=== PATIENT | male | born 1960 ===

== ENCOUNTER 2023-08-15 16:04 | Emergency (ER) | payer OTHER, SELFPAY ==
[2023-08-15 16:05] VITALS: BP 174/98
[2023-08-15 16:12] VITALS: BMI 37.6
--- NOTE | 2023-08-15 16:17 | EDRN ---
right middle finger is partially amputated, Felix MORENO at bedside, multiple RN's at the pts bedside, finger being soaked in hydrogen peroxide and sterile water, the pt is pleasant and cooperative with staff
[2023-08-15] MEDS: ADACEL 0.5 ML IM (16:28)
--- NOTE | 2023-08-15 16:34 | ED.SKININJ ---
HPI-Injury
General
Chief Complaint: Skin Surface Trauma
Source: patient
Exam Limitations: none
Time Seen by Provider: 08/15/23 16:14
Travel History
Have you had any contact with someone who has COVID-19?: No
Do you have any symptoms of coronavirus? Fever > 100 degrees, chills, cough, shortness of breath, sore throat, loss of taste or smell, muscle aches, or headache?: No
History of Present Illness-Injury
Initial Injury comments:
62-year-old male [id number] presents with injury to right long finger he sustained today. Sliding to walk to the back of his truck slid and pinched his finger and nearly amputated the tip of his finger. Last tetanus unknown. He denies
any significant pain. No other complaints at this time
Past History
Past History
ED Past Medical History: Arrthythmia (Atrial fibrillation), GERD, NIDDM and Other (Obstructive sleep apnea, sepsis, kidney cancer)
ED Past Surgical History: Cardiac (Ablation) and Orthopedic
Phy Exam
Physical Exam
Physical Exam:
General: Well-appearing male no acute respiratory distress
Skin: Near amputation right long finger at the level of the DIP joint. Portion is held on by a skin bridge over the ulnar aspect. The bone and the DIP joint is visible through the wound. The base of the distal phalanx is fractured.
Vascular: Patient has similar capillary refill in the pad of his long finger as he does in the other fingers.
Neuro. Decreased if any sensation to the pad of his volar aspect of the long finger.
Musculoskeletal exam: Patient seems to have intact flexion to the DIP joint of the long finger however no ability to extend
Course
Orders/Labs/Results
Orders:
Orders
08/15/23 16:18
Tetanus/Diphth/Acelpertussis [Adacel] 0.5 ml IM .ONCE ONE
CR Hand - Right Min 3 Views Urgent
Comment:
Reason For Exam: amputation right middle ringer
08/15/23 16:30
CeFAZolin 2 GRAM [Ancef] 2 grams in 10 ml IV NOW
08/15/23 17:03
HYDROmorphone [Dilaudid] 0.5 mg IV NOW STA
08/15/23 17:04
HYDROmorphone [Dilaudid] 0.5 mg .ROUTE .STK-MED ONE
HYDROmorphone [Dilaudid] 0.5 mg IV NOW STA
Vital Signs
Initial and Last Documented VS:
Initial Vital Signs
Temp Pulse Resp BP Pulse Ox
98.0 F 76 18 174/98 94
08/15/23 16:05 08/15/23 16:05 08/15/23 16:05 08/15/23 16:05 08/15/23 16:05
Last Documented Vital Signs
Temp Pulse Resp BP Pulse Ox
98.0 F 76 18 174/98 94
08/15/23 16:05 08/15/23 16:05 08/15/23 16:05 08/15/23 16:05 08/15/23 16:05
Procedures
Laceration Closure
Right Distal Third Finger:
Size of Wound in cm: 3
Description of Wound Edges: ragged and flap-poorly vascularized
Preparation: cleaned with saline
Anesthesia: 1% Lidocaine, Marcaine and Digital-Regional
Revision/Debridement: extensive revision, debrided and irrigate-direct pressure
Wound exploration: explored to base- no FB
Type of Closure: single layer closure
Skin Closure Material: 4-0 prolene
MDM/Problems Addressed
Differential Diagnosis Includes:
Laceration/near amputation right long finger at the DIP joint. Question possible underlying fracture.
Ancef administered for open fracture. Tetanus updated x-ray pending.
*Critical Care Note
Total Time (30-74mins, 75-104mins- exclusive of procedures): Not Applicable
Update Note
Update Note:
Sent pictures of patient's finger and x-rays to orthopedics who recommended closing the wound placing on antibiotics and outpatient follow-up. The finger was given a digital block using 1% lidocaine and 0.5% Marcaine. This provided adequate
anesthesia. The finger was then copiously reirrigated. Anatomic landmarks were realigned. The finger was approximated with 4-0 Prolene sutures in a simple erupted fashion. There were 2 sutures placed to the base of the nail to hold this in place
as well. A splint was applied with a dressing patient started on Keflex and advised close follow-up with hand specialist. Total length of the laceration was about 3 cm
ED Attending Note
-
Portions of this chart may have been created with voice recognition software.� Occasional wrong word or��sound alike� substitutions may have occurred due to the inherent limitations of voice recognition software.
Discharge Plan
Departure
Patient Disposition: Home (Routine Discharge)
Date of Disposition: 08/15/23
Time of Disposition: 17:50
Patient with high blood pressure during this ER visit?: No
Discharge Problem:
Laceration, Open fracture
Instructions: Laceration Repair With Stitches (DC)
Prescriptions:
New
cephalexin 500 mg capsule
500 mg PO Q6H 7 Days Qty: 28 0RF
No Action
multivitamin Tablet
1 tab PO DAILY
losartan 50 mg Tablet
50 mg PO DAILY
sotalol 120 mg Tablet
120 mg PO BID
furosemide 20 mg Tablet
10 mg PO PRN PRN (Reason: CHF HX)
Patient Comments:
PT STATES HE ONLY TAKES 10MG NEEDED
metoprolol succinate 25 mg Tablet Extended Release 24 Hr
25 mg PO QPM
azelastine 137 mcg (0.1 %) Aerosol,[place]
1 spray INTRANASAL PRN PRN (Reason: ALLERGIES)
albuterol sulfate [ProAir HFA] 90 mcg/actuation Hfa Aerosol Inhaler
2 puff INHALATION 6XD PRN (Reason: SOB)
Patient Comments:
only as needed
metformin 500 mg Tablet Extended Release 24hr
500 mg PO BID
cholecalciferol (vitamin D3) [Vitamin D3] 25 mcg (1,000 unit) Tablet
25 mcg PO DAILY
dabigatran etexilate [Pradaxa] 150 mg Capsule
150 mg PO BID
Trulicity 1.5 mg/0.5 mL Pen Injector
1.5 mg SC TU
Patient Comments:
PT TAKES IT ONCE A WEEK FRIDAY OR FRIDAY
oxycodone 5 mg tablet
5 - 10 mg PO Q4HPRN PRN (Reason: moderate to severe pain) Qty: 10 0RF
Patient Comments:
PT STATES 10MG NEEDED
linezolid 600 mg Tablet
600 mg PO BID Qty: 28 0RF
cefdinir 300 mg capsule
300 mg PO BID Qty: 28 0RF
Referrals:
UNKNOWN - PT DOES,NOT KNOW [Unknown Provider] -
Activity Restrictions/Additional Instructions:
Take antibiotics as directed. Keep dressing on. Please follow-up with hand specialist for next available appointment. Return if needed otherwise
Interventions
Interventions:
*Risk Screen - Suicide Last Done: 08/15/23 16:12
*General Assessment Last Done: 08/15/23 16:05
*Neglect/Abuse Screening Last Done: 08/15/23 16:12
ED- Fall Risk Assessment Last Done: 08/15/23 16:12
*ED COVID-19 Vaccine History Last Done: 08/15/23 16:05
ED-Skin Assessment Last Done: 08/15/23 16:12
--- NOTE | 2023-08-15 16:35 | EDRN ---
right middle finger wrapped in gauze and rubina and pt taken to xray
[2023-08-15] MEDS: ANCEF 10 IV (16:45)
[2023-08-15] MEDS: DILAUDID 0.5 MG IV (17:04)
== END 2023-08-15 18:18 | disposition home or self-care (01) ==
LOC: EMR 16:04
PROVIDERS: EMERGENCY PHYSICIAN Emergency Medicine; FAMILY PHYSICIAN Internal Medicine
DX: S62.632B Displaced fracture of distal phalanx of right middle finger, initial encounter for open fracture (principal); S68.122A Partial traumatic metacarpophalangeal amputation of right middle finger, initial encounter; W23.0XXA Caught, crushed, jammed, or pinched between moving objects, initial encounter; I48.91 Unspecified atrial fibrillation; E11.9 Type 2 diabetes mellitus without complications; G47.33 Obstructive sleep apnea (adult) (pediatric); K21.9 Gastro-esophageal reflux disease without esophagitis; Z85.528 Personal history of other malignant neoplasm of kidney
CPT/HCPCS: 64450; 99284; 13132; 96374; 96375; 90471; 73130; 90715

== ENCOUNTER 2024-07-17 14:35 | Inpatient (IN) | payer MEDICARE, SELFPAY ==
[2024-07-16 13:54] VITALS: BP 130/74
[2024-07-16 14:36] LABS: % Basophils 0.4 % (0-2); % Eosinophils 0.1 % (0-6); % Immature Granulocytes 0.4 % (0-0.5); % Lymphocytes 8.8 % (20.5-51.1); % Neutrophils 81.3 % (42.2-75.2); Absolute Neutrophils 8.8 10^3/uL (1.4-6.5); Hematocrit 41.5 % (39.0-52.0); Mean Corp Hgb Conc. 33.7 g/dL (33.0-37.0); Mean Corpuscular Hgb 30.8 pg (27.0-31.0); Mean Corpuscular Volume 91.2 fL (80.0-94.0); Mean Platelet Volume 9.2 fL (7.4-10.4); Nucleated Red Blood Cells % 0 % (-); Platelet Count 234 10^3/uL (130-400); Red Blood Cell Count 4.55 10^6/uL (4.70-6.10); Red Cell Dist. Width 14.3 % (11.5-14.5); White Blood Cell Count 10.8 10^3/uL (4.8-10.8)
[2024-07-16 14:39] LABS: COVID-19 Antigen Negative (Negative)
[2024-07-16 14:40] LABS: ALT (SGPT) 26 U/L (0-50); AST (SGOT) 32 U/L (17-59); Albumin 3.9 g/dl (3.5-5.0); Alkaline Phosphatase 55 U/L (38-126); Blood Urea Nitrogen 14 mg/dl (9-20); Calcium 8.8 mg/dl (8.4-10.2); Carbon Dioxide 24 mmol/L (22-30); Chloride 99 mmol/L (98-107); Glucose 162 mg/dl (70-99); Potassium 4.2 mmol/L (3.5-5.1); Sodium 133 mmol/L (135-145); Total Bilirubin 0.8 mg/dl (0.2-1.3); Total Protein 7.3 g/dl (6.3-8.2); eGFR > 60.00
--- NOTE | 2024-07-16 17:38 | ED.GENMED ---
History of Present Illness
General
Chief Complaint: Extremity Pain (non-traumatic)
Source: patient
Exam Limitations: none
Time Seen by Provider: 07/16/24 17:37
Nursing documentation reviewed up to this point in time: agreed with
History of Present Illness
History of Present Illness:
63-year-old male with history of A-fib on Pradaxa, sleep apnea on CPAP, GERD, NIDDM, partial left nephrectomy 2011 for kidney cancer, cardiac ablation x 3, loop recorder replaced in 2019 presents for pain, NIDDM, redness, swelling right leg, fever,
chills, headache past 4 days, temp max was 104.0 yesterday, last Tylenol 1000 mg 12:30 today. Noted pain inner right thigh 3 days ago and right leg has been getting more red and swollen generally. Denies n/v/d. Appetite has been poor.
Past History
Past History
ED Past Medical History: Arrthythmia (Atrial fibrillation), GERD, NIDDM and Other (Obstructive sleep apnea, sepsis, kidney cancer)
ED Past Surgical History: Cardiac (Ablation) and Orthopedic
Review of Systems
Review of Systems
Allergies reviewed?: Yes
All Other Systems: ROS reviewed and negative except as documented in HPI and ROS
Constitutional: Reports fever and chills
Respiratory: Denies trouble breathing
Cardiac: Denies chest pain
ABD/GI: Reports anorexia; Denies abdominal pain, nausea, vomiting or diarrhea
: Denies dysuria or difficulty voiding
Musculoskeletal: Reports other (pain, swelling, redness right leg)
Skin: Reports other (redness right leg)
Neurological: Reports headache; Denies dizzy, weakness or numbness
Phy Exam
Physical Exam
Physical Exam:
GENERAL: No acute distress. A&Ox3.
CONSTITUTIONAL: Temp 101.8 po for this examiner
EYES: clear, conjunctivae normal
ENMT: moist mucus membranes, Pharynx nl
RESPIRATORY: Regular respirations, nonlabored, lungs clear.
CARDIOVASCULAR: Regular rate and rhythm, no murmurs, no rubs.
GI: Soft, nontender, normal BS
MUSCULOSKELETAL: Moves with ease. Well perfused.
SKIN: Warm, dry, pink. Right leg with red, tender medial aspect thigh, lower leg with blotchy redness, warmth.
PSYCH: Normal mood and affect. Well kept, interactive and appropriate
NEUROLOGIC: Awake, alert and oriented. No focal neurological deficits
Course
Orders/Labs/Results
Orders:
Orders
07/16/24 13:59
US Periph Venous LOWER Ext RT Urgent
Comment:
Reason For Exam: swelling, pain
07/16/24 14:03
COVID-19 Antigen Urgent
Source: Nasal Swab
Complete Blood Count/With Diff Urgent
Comprehensive Metabolic Panel Urgent
Influenza A+B Rapid Molecular Urgent
SHANNAN Source: Nasal Swab
Specimen Description:
07/16/24 Dinner
Regular
At Your Request: Full Participation
07/16/24 18:03
CeFAZolin 2 GRAM [Ancef] 2 grams in 10 ml IV NOW
07/16/24 18:12
Lactic Acid Q4H
Comment: CANCEL 2nd LACTIC ACID IF 1st LACTIC ACID IS LESS THAN 2
Blood Culture Q30M
SHANNAN Source: Blood/Venous
Specimen Description:
Blood Culture Q30M
SHANNAN Source: Blood/Venous
Specimen Description:
07/16/24 18:13
Acetaminophen [Tylenol] 1,000 mg PO NOW STA
07/16/24 18:35
Admit/Transfer Patient As Directed
Co-Sign Provider:
Level of Care: Observation services
Assign to:: Medical/Surgical
Physician / Group: yamile
Diagnosis: cellulitis
Code Status As Directed
Resuscitation Status: Full Code
PRN Pain Medication Management As Directed
May give lesser potent ordered pain med per pt: Yes
preference::
Protocol:: Medication orders for pain may be administered in a
manner that supports deferring to patient preference
when the pt is:
- Requesting an ordered lesser potent pain medication.
Least to most potent pain medications are defined
as: acetaminophen < NSAID < tramadol < opioids
(morphine, oxycodone, hydromorphone).
- Requesting a lesser dose of the same medication IF
ORDERED.
- Requesting a less intrusive route of administration
if both routes are prescribed by the provider (PO <
IV).
07/16/24 18:53
Vancomycin [Vancocin] 2,000 mg 0.9% Sodium Chloride 500 ml [Nss] 500 ml IV NOW
07/16/24 22:37
Acetaminophen [Tylenol] 650 mg PO Q4HPRN PRN
Albuterol [ProAIR HFA INHALER] 2 puff INH R Q6HPRN PRN
Dabigatran Etexilate Mesylate [Pradaxa] 150 mg PO BID
Metformin Extended Release [Glucophage Xr Extended Release] 500 mg PO BID AT 0800,1700
Pantoprazole [Protonix] 40 mg PO DAILYPRN PRN
Sotalol [Betapace] 120 mg PO BID
VANCOMYCIN Pharmacy to Dose [VANCOCIN Pharmacy to Dose] 1 each Pharmacy To Prepare [Call Pharmacy To Prepare] 0 ml IV PER PROTOCOL
07/16/24 22:37
VTE Contraindication Routine
VTE Mechanical Device Contraindication: Medical Contraindication
Pharmocologic Contraindication: Medical Contraindication
Activity As Directed
Activity Level: As Tolerated
Vital Signs As Directed
Frequency: Per unit guidelines
07/17/24 05:38
Complete Blood Count/With Diff IN AM
Comprehensive Metabolic Panel IN AM
07/17/24 08:00
Dapagliflozin [Farxiga] 10 mg PO DAILY
Losartan [Cozaar] 50 mg PO DAILY
Metoprolol Xl [Toprol Xl] 25 mg PO DAILY
Multivitamin [Theragran] 1 tablet PO DAILY
07/17/24 18:00
Cholecalciferol (Vitamin D3) [VITAMIN D3 (cholecalciferol)] 25 mcg PO QPM
Abnormal Lab Results
07/16/24
14:03
RBC 4.55 L 10^6/uL
(4.70-6.10)
Absolute Neuts (auto) 8.8 H 10^3/uL
(1.4-6.5)
Absolute Lymphs (auto) 1.0 L 10^3/uL
(1.2-3.4)
Absolute Monos (auto) 1.0 H 10^3/uL
(0.1-0.6)
Neutrophils % 81.3 H %
(42.2-75.2)
Lymphocytes % 8.8 L %
(20.5-51.1)
Sodium 133 L mmol/L
(135-145)
Glucose 162 H mg/dl
(70-99)
07/16/24 14:03
07/16/24 14:03
Vital Signs
Initial and Last Documented VS:
Initial Vital Signs
Temp Pulse Resp BP Pulse Ox
100.7 F H 88 20 130/74 93
07/16/24 13:54 07/16/24 13:54 07/16/24 13:54 07/16/24 13:54 07/16/24 13:54
Last Documented Vital Signs
Temp Pulse Resp BP Pulse Ox
99.4 F 75 18 128/73 95
07/17/24 07:19 07/17/24 07:19 07/17/24 07:19 07/17/24 07:19 07/17/24 07:19
MDM/Problems Addressed
MDM/Problems Addressed:
63-year-old male with history of A-fib on Pradaxa, sleep apnea on CPAP, GERD, NIDDM, partial left nephrectomy 2011 for kidney cancer, cardiac ablation x 3, loop recorder replaced in 2019 presents for pain, NIDDM, redness, swelling right leg, fever,
chills, headache past 4 days, temp max was 104.0 yesterday, last Tylenol 1000 mg 12:30 today. Noted pain inner right thigh 3 days ago and right leg has been getting more red and swollen generally. Denies n/v/d. Appetite has been poor.
Temp now 101.8 by this examiner
CBC with no clinically significant abnormality
CMP with no clinically significant abnormality
COVID-negative
Flu negative
63 yo NIDDM, fever/chills past 4 days with headache, poor appetite, worsening redness, swelling, pain right leg
US neg for DVT
6:15 p.m.
Plan: Admit, cellulitis right lower extremity, IV antibiotics, blood cultures pending
Not clinically septic
Using Vancomycin and Cefazolin (due to documented PCN allergy of throat swelling, pt denies anaphylaxis).
Hospitalist notified of admission.
Chronic conditions affecting care: DM, HTN and Arrhythmia (afib on Pradaxa)
*Critical Care Note
Total Time (30-74mins, 75-104mins- exclusive of procedures): Not Applicable
ED Attending Note
-
Portions of this chart may have been created with voice recognition software.� Occasional wrong word or��sound alike� substitutions may have occurred due to the inherent limitations of voice recognition software.
Discharge Plan
Departure
Patient Disposition: Admit
Date of Disposition: 07/16/24
Time of Disposition: 18:13
Admit to: Med/Surg
Presentation/result/management discussed w/ accepting MD/DO: Hospitalist
Condition: Fair
Discharge Problem:
Cellulitis of right leg
Interventions
Interventions:
*Risk Screen - Suicide Last Done: 07/16/24 13:54
*General Assessment Last Done: 07/16/24 16:35
*Neglect/Abuse Screening Last Done: 07/16/24 16:35
*ED COVID-19 Vaccine History Last Done: 07/16/24 16:35
*Nursing Disposition Last Done: 07/16/24 22:38
ED-Musculoskeletal Assessment Last Done: 07/16/24 16:35
ED-Peripheral Vascular Assessment Last Done: 07/16/24 16:35
ED-Skin Assessment Last Done: 07/16/24 16:35
Discharge Date and Time
Discharge Date/Time: 07/16/24 22:38
[2024-07-16 18:34] LABS: Lactic Acid 1.5 mmol/L (0.7-2.0)
[2024-07-16 18:47] VITALS: BMI 39.9
--- NOTE | 2024-07-16 18:47 | HPS.HSE ---
Family Physician
-
Family Physician: NOT KNOW UNKNOWN - PT DOES
Chief Complaint
-
right leg swelling
History of Present Illness
63-year-old male past medical history of atrial fibrillation on Pradaxa status post cardiac ablation x 3, obstructive sleep apnea on CPAP, diabetes, GERD, kidney cancer status post left partial nephrectomy, presenting for pain, redness and swelling
of the right upper leg with fevers and chills and headache for the past 4 days. He had temperature of 104 yesterday. Over the past day the swelling and redness and pain is also starting the lower part of the right leg. Denies nausea vomiting or
diarrhea.
He is also been having headache, body aches and some cough over the past few days so initially thought that he had flu.
Denies smoking or alcohol use.
Medical History
Past Medical History
Past Medical History: Reports Other (atrial fibrillation on Pradaxa status post cardiac ablation x 3, obstructive sleep apnea on CPAP, diabetes, GERD, kidney cancer status post left partial nephrectomy)
Past Surgical History: Reports None
Social History
Tobacco: Non-smoker
Alcohol: None
Drug: None
Family History
Family History: Not pertinent
Allergies / Home Medications
Allergies reflects when Allergies were last updated in [facility].
Home Medications with original date entered in [facility]
Allergy/Medication List:
Allergies
Allergy/AdvReac Type Severity Reaction Status Date / Time
Penicillins Allergy THROAT Verified 07/16/24 13:55
SWELLING,
HIVES
sulfamethoxazole Allergy THROAT Verified 07/16/24 13:55
[From Bactrim] SWELLING,
HIVES
trimethoprim [From Bactrim] Allergy THROAT Verified 07/16/24 13:55
SWELLING,
HIVES
Home Medications
cholecalciferol (vitamin D3) 25 mcg (1,000 unit) tablet (Vitamin D3) 25 mcg PO QPM Supplement 11/27/22
dabigatran etexilate 150 mg capsule (Pradaxa) 150 mg PO BID Blood Clot Prevention/Tx 11/27/22
losartan 50 mg tablet 50 mg PO DAILY Blood Pressure 11/27/22
metformin 500 mg tablet,extended release 24hr (osmotic) 500 mg PO BID Diabetes 11/27/22
metoprolol succinate 25 mg tablet,extended release 24 hr 25 mg PO DAILY Arrhythmia 11/27/22
sotalol 120 mg tablet 120 mg PO BID Arrhythmia 11/27/22
albuterol sulfate 90 mcg/actuation aerosol inhaler 2 puff inhalation R Q6HPRN PRN sob 07/16/24
empagliflozin 10 mg tablet (Jardiance) 10 mg PO DAILY 07/16/24
pantoprazole 40 mg tablet,delayed release 40 mg PO DAILYPRN PRN heartburn 07/16/24
potassium chloride 10 mEq tablet,extended release 10 meq PO DAILY 07/16/24
semaglutide 1 mg/dose (4 mg/3 mL) subcutaneous pen injector (Ozempic) 1 mg SC MO 07/16/24
therapeutic multivitamin 1 tab PO DAILY 07/16/24
torsemide 10 mg tablet 10 mg PO DAILY 07/16/24
Review of Systems
-
History Source: Patient
A 12 point ROS was completed and negative except as noted: Yes
Constitutional: Reports No Symptoms
EENT: Reports No Symptoms
Respiratory: Reports No Symptoms
Cardiac: Reports No Symptoms
Abdomen/GI: Reports No Symptoms
: Reports No Symptoms
Musculoskeletal: Reports No Symptoms
Skin: Reports See HPI
Neurological: Reports No Symptoms
Endocrine: Reports No Symptoms
Hematologic/Lymphatic: Reports No Symptoms
Psych: Reports No Symptoms
Physical Exam
Vital Signs
Vital Signs
Temp Pulse Resp BP Pulse Ox
101.8 F H 88 20 130/74 93
07/16/24 18:24 07/16/24 13:54 07/16/24 13:54 07/16/24 13:54 07/16/24 13:54
Physical Exam
General: Well Developed, Well Nourished and No Apparent Distress
HEENT: NormoCephalic, Moist mucous membranes and Atraumatic
Respiratory: Clear
Cardiac: S1/S2 and Regular Rhythm; No Murmur or Rub
GI: Soft, Non Tender, Non Distended and Normal Bowel Sounds; No Organomegaly
Rectal: Deferred by Provider
Musculoskeletal: No Clubbing, No Cyanosis and No Edema
Skin: Other (erythema of right leg ); No Rash
Neuro: Nonfocal/grossly intact
Laboratory Results
-
07/16/24 14:03
07/16/24 14:03
Laboratory Results
Lactic Acid 1.5 mmol/L (0.7-2.0) 07/16/24 18:12
Lactic Acid Cancelled 07/16/24 18:12
Total Bilirubin 0.8 mg/dl (0.2-1.3) 07/16/24 14:03
AST 32 U/L (17-59) 07/16/24 14:03
ALT 26 U/L (0-50) 07/16/24 14:03
Alkaline Phosphatase 55 U/L (38-126) 07/16/24 14:03
Data Reviewed
-
Lab Data: Labs Reviewed by me
Old Records: Reviewed
Impression/Plan
-
IMPRESSION:
PLAN:
# Fever secondary to right lower extremity cellulitis
-Not clinically septic
-Venous ultrasound negative for DVT
-Cefazolin and vancomycin given
-Blood cultures pending
-Vancomycin
-Influenza and COVID negative
-Hold torsemide
Paroxysmal atrial fibrillation s/p cardiac ablation x 3
-Continue sotalol
-Continue metoprolol
-Continue Pradaxa
Essential hypertension
-Continue losartan
Obstructive sleep apnea
Type 2 diabetes
-Continue metformin
-Continue Jardiance
-Insulin sliding scale
GERD
Kidney cancer status post left partial nephrectomy
Full code
DVT prophylaxis�Pradaxa
Regular diet
[2024-07-16] MEDS: TYLENOL 1000 MG PO (19:27)
[2024-07-16] MEDS: ANCEF 10 IV (19:27)
[2024-07-16] MEDS: VANCOCIN 540 MG IV (19:30)
[2024-07-16 19:35] VITALS: BP 154/67
[2024-07-16 22:52] VITALS: BP 134/73
[2024-07-16 22:54] VITALS: BMI 40.0
[2024-07-16 22:56] VITALS: BMI 40.0
[2024-07-16] MEDS: GLUCOPHAGE XR EXTENDED RELEASE 500 MG PO (23:14)
[2024-07-16] MEDS: PRADAXA 150 MG PO (23:15)
[2024-07-16] MEDS: BETAPACE 120 MG PO (23:17)
[2024-07-16] MEDS: TYLENOL 650 MG PO (23:22)
[2024-07-17] VITALS (7 sets, daily range): BP systolic 128–166; BP diastolic 73–87
--- NOTE | 2024-07-17 01:04 | PTCARENOTE ---
Pt arrived from ED via stretcher and safely ambulated into room 336-2. Pt AAOx3, oriented to room, call johnson within reach, able to make needs known.
[2024-07-17] MEDS: VANCOCIN 530 MG IV (05:06)
[2024-07-17] MEDS: TYLENOL 650 MG PO ×4 (05:07→22:02)
[2024-07-17 06:15] LABS: % Basophils 0.6 % (0-2); % Eosinophils 0.6 % (0-6); % Immature Granulocytes 0.6 % (0-0.5); % Lymphocytes 12.6 % (20.5-51.1); % Monocytes 14.1 % (1.7-9.3); % Neutrophils 71.5 % (42.2-75.2); Absolute Basophils 0.1 10^3/uL (0-0.2); Absolute Eosinophils 0.1 10^3/uL (0-0.7); Absolute Immature Granulocytes 0.1 10^3/uL (0-0.05); Absolute Lymphocytes 1.4 10^3/uL (1.2-3.4); Absolute Monocytes 1.6 10^3/uL (0.1-0.6); Absolute Neutrophils 7.9 10^3/uL (1.4-6.5); Hematocrit 41.5 % (39.0-52.0); Hemoglobin 13.7 g/dL (13.0-18.0); Mean Corpuscular Hgb 30.7 pg (27.0-31.0); Mean Platelet Volume 9.3 fL (7.4-10.4); Nucleated Red Blood Cells % 0 % (-); Platelet Count 247 10^3/uL (130-400); Red Blood Cell Count 4.46 10^6/uL (4.70-6.10); Red Cell Dist. Width 14.4 % (11.5-14.5)
[2024-07-17 06:59] LABS: ALT (SGPT) 23 U/L (0-50); AST (SGOT) 32 U/L (17-59); Albumin 3.7 g/dl (3.5-5.0); Alkaline Phosphatase 66 U/L (38-126); Blood Urea Nitrogen 18 mg/dl (9-20); Calcium 8.8 mg/dl (8.4-10.2); Carbon Dioxide 26 mmol/L (22-30); Chloride 97 mmol/L (98-107); Estimated Creatinine Clearance 119 ml/min; Glucose 107 mg/dl (70-99); Potassium 3.9 mmol/L (3.5-5.1); Sodium 135 mmol/L (135-145); Total Bilirubin 0.7 mg/dl (0.2-1.3); Total Protein 7.1 g/dl (6.3-8.2); eGFR > 60.00
[2024-07-17] MEDS: THERAGRAN 1 TABLET PO (08:42)
[2024-07-17] MEDS: PRADAXA 150 MG PO ×2 (08:42→20:22)
[2024-07-17] MEDS: BETAPACE 120 MG PO ×2 (08:43→20:22)
[2024-07-17] MEDS: ANCEF 10 IV ×3 (08:52→23:12)
[2024-07-17] MEDS: FARXIGA 10 MG PO (08:52)
[2024-07-17] MEDS: TOPROL XL 25 MG PO (08:53)
[2024-07-17] MEDS: COZAAR 50 MG PO (08:54)
[2024-07-17] MEDS: GLUCOPHAGE XR EXTENDED RELEASE 500 MG PO ×2 (08:54→17:19)
--- NOTE | 2024-07-17 11:28 | W.PN.HOSP.TC ---
Today's Communication/Plan
-
Change to high dose Ancef IV
Add Insulin with Acu- checks
ok to shower
Resume Torsemide
change to inpt
Assessment / Plan
Assessment / Plan
Physical Exam
General: Well Developed, Well Nourished and No Apparent Distress
HEENT: NormoCephalic, Moist mucous membranes and Atraumatic
Respiratory: Clear
Cardiac: S1/S2
GI: Soft, Non Tender, Non Distended and Normal Bowel Sounds; No Organomegaly
Rectal: no bleeding
Musculoskeletal: No Clubbing, No Cyanosis and No Edema
Skin: Other (erythema of right leg seems less in comparison of the pic he had yesterday
Neuro: Nonfocal/grossly intact
# Fever secondary to right lower extremity non-purulent cellulitis
-Not clinically septic
negative lactic acid
Afebrile , temp at 99
-Venous ultrasound negative for DVT
-Cefazolin to 2 gm Q 8 hours
-Blood cultures pending
-Influenza and COVID negative
-Hold torsemide
Paroxysmal atrial fibrillation s/p cardiac ablation x 3
-Continue sotalol
-Continue metoprolol
-Continue Pradaxa
reported PVCs on tele, repeat stat EKG no changes.
Hyponatremia
mild
Essential hypertension
uncontrolled
c/w BB
Add Torsemide , he takes 10 mg
-Continue losartan
Obstructive sleep apnea
Type 2 diabetes
-Continue metformin
-Continue Jardiance
-Insulin sliding scale
- Will add ISS
GERD
# Obesity BMI 39
Recently started on Mounjaro
Kidney cancer status post left partial nephrectomy
Full code
DVT prophylaxis�Pradaxa
Regular diet
Total time spent to see the patient, examine the patient, review data and lab results, discuss the treatment plan with patient, nursing staff around 55 minutes
Anticipated Discharge: 24 - 48 hours
Subjective/Interval History
-
Date of Service: July 17, 2024
he feels better
less redness in left leg, wants to go home
Objective Data
-
Labs:
Laboratory Results
07/17/24
05:38
WBC 11.0 H
Hgb 13.7
Hct 41.5
Plt Count 247
Sodium 135
Potassium 3.9
Chloride 97 L
Carbon Dioxide 26
BUN 18
Creatinine 1.0
Glucose 107 H
Calcium 8.8
Total Bilirubin 0.7
AST 32
ALT 23
Alkaline Phosphatase 66
Vital Signs:
Vital Signs
Temp Pulse Resp BP Pulse Ox
99.0 F 71 17 129/78 96
07/17/24 10:55 07/17/24 10:55 07/17/24 10:55 07/17/24 10:55 07/17/24 10:55
[2024-07-17] MEDS: DEMADEX 10 MG PO (14:15)
--- NOTE | 2024-07-17 16:16 | CM ---
Alert awake oriented patient who lives with his Devi who lives in a 1 story home with 1 step to enter.He is independent in driving and in all activities of daily living.He was offered VN he declined need.PHIPPS given explained signed on chart.
Chirag VN hx / No SNF history
Pharmacy [facility]
PCP DR Raffy Mckeon
PLAN Home Declined VN
[2024-07-17 16:55] LABS: Glucose - Point of Care 114 mg/dl (70-99)
[2024-07-17] MEDS: VITAMIN D3 (cholecalciferol) 25 MCG PO (17:18)
[2024-07-17 21:19] LABS: Glucose - Point of Care 117 mg/dl (70-99)
[2024-07-17] MEDS: LOPRESSOR 2.5 MG IV (22:03)
--- NOTE | 2024-07-17 23:45 | PTCARENOTE ---
Pt on monitor showing HR in 130s-150s for a sustained amount of time. Pt assessed, asymptomatic, BP 139/89 and temp 100.5. CHEMO [place] notified of patient status. PRN tylenol and STAT lopressor given. After a couple of hours, pt HR remain
elevated in 140s-150s, BP 147/101 and [employer] [employer] notified of update. No new orders at this time.
[2024-07-18] MEDS: DILAUDID 0.5 MG IV ×4 (00:13→18:03)
[2024-07-18] MEDS: LOPRESSOR 5 MG IV (01:23)
[2024-07-18] MEDS: TYLENOL 650 MG PO ×2 (03:39→10:19)
[2024-07-18 03:40] VITALS: BP 111/76
--- NOTE | 2024-07-18 05:22 | W.PN.UPDATE ---
Update Note
Progress Note Update
HR elevated, 130-150's, EKG shows afib w/RVR, pt w/paroxysmal afib hx. Given Metoprolol 2.5 mg IV x 1 with no change in HR. Second dose Metoprolol 5 mg IV x 1 given with improvement in HR 110-120's. BP stable 130/80's. Follows with Dr. Jason
[facility]. Pt also due for battery change in 3 months for his loop recorder. Cardiology consult ordered with Dr. Yu, appreciate his recommendations.
[2024-07-18 06:00] VITALS: BMI 39.1
[2024-07-18 07:37] VITALS: BP 115/85
[2024-07-18] MEDS: COZAAR 50 MG PO (07:52)
[2024-07-18] MEDS: GLUCOPHAGE XR EXTENDED RELEASE 500 MG PO ×2 (07:52→18:02)
[2024-07-18] MEDS: BETAPACE 120 MG PO ×2 (07:52→19:52)
[2024-07-18] MEDS: PRADAXA 150 MG PO ×2 (07:53→19:52)
[2024-07-18] MEDS: ANCEF 10 IV (07:54)
[2024-07-18] MEDS: THERAGRAN 1 TABLET PO (07:54)
--- NOTE | 2024-07-18 07:56 | PHA.VAN.IN ---
Assessment
- Assessment
Renal Function: Appears similar to baseline
Renal Function may be Overestimated due to: age and bmi
Concomitant Antimicrobials: ancef
- Previous Dosing Experience
Previous Regimen: 1250mg q8h
Date of Regimen: 12/2022
Patient's SCR is: Similar to previous dosing experience
Patient's weight is: Similar to previous dosing experience
due to age will start with q12h dosing
AUC Dosing Plan
- Dosing Variables
Dosing Weight (kg): 145.6
Dosing CrCl (ml/min): 100
Vd coefficient (L/kg): 0.6
- Empiric Dosing
Initial / Loading Dose: 2gm 07/16, 1.5gm 07/17
Maintenance Regimen: 2000mg q12h
Estimated AUC (mcg*h/mL): 493
Estimated Peak (mcg*h/mL): 32.4
Estimated Trough (mcg/ml): 11.6
Estimated Half Life (H): 6.8
- Monitoring
No levels ordered at this time: consider at steady state
Pharmacokinetics Vancomycin I
- -
Patient Age: 63
Patient Sex: Male
Vancomycin Day #: 1
Indication: Bacteremia
Requesting Provider: Dr. Razo
Pertinent Antimicrobial Allergies:
pcns=throat swelling
bactrim=throat swelling
Height / Weight:
Height 6 ft 4 in
Actual Weight 145.603 kg
IBW in k.8
- Vital Signs / Lab Results
Temp Pulse Resp BP Pulse Ox
98.8 F 127 24 115/85 96
07/18/24 07:37 07/18/24 07:37 07/18/24 07:37 07/18/24 07:37 07/18/24 03:40
Lab Results - Hematology
07/16/24 07/17/24
14:03 05:38
WBC 10.8 11.0 H
Lab Results - Chemistry
07/16/24 07/17/24
14:03 05:38
BUN 14 18
Creatinine 0.9 1.0
Estimated Creat Clear 119
Albumin 3.9 3.7
07/16/24 07/16/24
18:12 18:12
Lactic Acid 1.5 Cancelled
Microbiology Results
07/16/24 18:12 Blood Culture - Preliminary
Blood/Venous No Growth in 24 hours- Final report to follow
07/16/24 18:12 Blood Culture - Preliminary
Blood/Venous No Growth in 24 hours- Final report to follow
07/16/24 14:03 Influenza Types A & B (GERMAINE) - Final
Nasal Swab Negative for Influenza A & B, NAAT
Negative results must be combined with clinical observations
and patient history.
Nucleic Acid Amplification test (NAAT)performed on the
[employer] NOW platform.
[2024-07-18] MEDS: TOPROL XL 50 MG PO (07:59)
[2024-07-18] MEDS: VANCOCIN 540 MG IV ×2 (08:18→18:02)
[2024-07-18 08:25] LABS: Hematocrit 43.7 % (39.0-52.0); Hemoglobin 14.7 g/dL (13.0-18.0); Mean Corp Hgb Conc. 33.6 g/dL (33.0-37.0); Mean Corpuscular Hgb 31.1 pg (27.0-31.0); Mean Corpuscular Volume 92.6 fL (80.0-94.0); Mean Platelet Volume 9.2 fL (7.4-10.4); Platelet Count 260 10^3/uL (130-400); Red Blood Cell Count 4.72 10^6/uL (4.70-6.10); Red Cell Dist. Width 14.4 % (11.5-14.5); White Blood Cell Count 11.1 10^3/uL (4.8-10.8)
[2024-07-18 08:31] LABS: Glucose - Point of Care 107 mg/dl (70-99)
[2024-07-18 08:44] LABS: Blood Urea Nitrogen 19 mg/dl (9-20); Calcium 8.8 mg/dl (8.4-10.2); Carbon Dioxide 26 mmol/L (22-30); Chloride 99 mmol/L (98-107); Estimated Creatinine Clearance > 125 ml/min; Glucose 107 mg/dl (70-99); Potassium 4.1 mmol/L (3.5-5.1); Sodium 136 mmol/L (135-145); eGFR > 60.00
--- NOTE | 2024-07-18 09:08 | W.PN.HOSP.TC ---
Today's Communication/Plan
-
No clinical improvement
Requesting ID evaluation
Add Vancomycin for possible resistant bacteria
Add IV PRN Dilaudid
Assessment / Plan
Assessment / Plan
Physical Exam
General: Well Developed, Well Nourished and No Apparent Distress
HEENT: NormoCephalic, Moist mucous membranes and Atraumatic
Respiratory: Clear
Cardiac: S1/S2
GI: Soft, Non Tender, Non Distended and Normal Bowel Sounds; No Organomegaly
Rectal: no bleeding
Musculoskeletal: No Clubbing, No Cyanosis and No Edema
Skin: Other (erythema of right leg seems less in comparison of the pic he had yesterday
Neuro: Nonfocal/grossly intact
# Fever secondary to right lower extremity non-purulent cellulitis
seems to be worse with erythema
+ fever at 100.4 today
Will Change back to IV vancomycin, possible MRSA, has staph in past but not MRSA?
Will ask ID to evaluate
IV Dilaudid for PRN pain
Re-culture blood
Recently started on Jardiance and increase dose of Ozempic,
negative lactic acid
-Venous ultrasound negative for DVT
- on Cefazolin to 2 gm Q 8 hours, add IV Vancomycin until ID sees the patient.
-Blood cultures no growth
-Influenza and COVID negative
-Hold torsemide
Paroxysmal atrial fibrillation s/p cardiac ablation x 3
-Continue sotalol
-Continue metoprolol
-Continue Pradaxa
reported PVCs on tele, repeat stat EKG no changes.
Hyponatremia
mild
Essential hypertension
uncontrolled
c/w BB
Added Torsemide , he takes 10 mg
-Continue losartan
Obstructive sleep apnea
Type 2 diabetes
-Continue metformin
-On OP regimen includes: Jardiance, started a week ago. Dose of Ozempic was increased also.
-Insulin sliding scale.
GERD
# Obesity BMI 39
Recently started on Mounjaro
Kidney cancer status post left partial nephrectomy
Full code
DVT prophylaxis�Pradaxa
Regular diet
Total time spent to see the patient, examine the patient, review data and lab results, discuss the treatment plan with patient, , nursing staff around 55 minutes
Anticipated Discharge: 24 - 48 hours
Subjective/Interval History
-
Date of Service: July 18, 2024
Pt is having pain in leg, wants pain medicine , Tylenol not enough
He is upset because his cellulitis not better,
Objective Data
-
Labs:
Laboratory Results
07/18/24
07:57
WBC 11.1 H
Hgb 14.7
Hct 43.7
Plt Count 260
Sodium 136
Potassium 4.1
Chloride 99
Carbon Dioxide 26
BUN 19
Creatinine 0.9
Glucose 107 H
Calcium 8.8
Vital Signs:
Vital Signs
Temp Pulse Resp BP Pulse Ox
98.8 F 127 24 115/85 96
07/18/24 07:37 07/18/24 07:52 07/18/24 07:37 07/18/24 07:52 07/18/24 03:40
I&O
07/17/24 07/18/24 07/19/24
06:59 06:59 06:59
Intake Total 1500 / 1500
Balance 1500 / 1500
[2024-07-18] MEDS: BENADRYL 25 MG PO (09:48)
--- NOTE | 2024-07-18 10:05 | PTCARENOTE ---
Pt c/o itching throughout RLE. made aware, new order provided, see MAR.
--- NOTE | 2024-07-18 10:20 | PTCARENOTE ---
HR elevated, 120's-130's. STANLEY. made aware, no new orders provided. instructed this RN to administer tylenol, tylenol administered, see MAR.
[2024-07-18 11:36] LABS: Glycohemoglobin (HgbA1c) 6.7 % (4.0-5.6)
[2024-07-18 11:45] VITALS: BP 133/76
[2024-07-18 11:59] LABS: Glucose - Point of Care 134 mg/dl (70-99)
--- NOTE | 2024-07-18 12:20 | CON.ID ---
Consultation
-
Date/Time Consultation Requested: 07/18/2024 0716
Date/Time Consultation Performed: 07/18/2024 1200
Requesting Provider: Dr. Razo
Performing Provider: Dr. Reyes
Reason for Consultation: Right lower extremity cellulitis
Chief Complaint / Past History
History of Present Illness
Yazan Phan is a 63-year-old man being evaluated the request of Dr. Razo in regards to right lower extremity cellulitis. History is obtained from chart review, along with patient interview.
The patient has a significant past medical history of A-fib (on Pradaxa), along with DM with neuropathy. He reports he was in his usual state of health until approximately 6 days ago when he developed fevers along with a headache. Around that time
he also reports that he noted some right groin discomfort, with a 'swollen area' down his medial thigh. 2 days before admission he noted some increasing redness of the posterior calf area, and increasing discomfort in the in the right leg.
Ultimately he presented to the hospital on 07/16 for further evaluation.
In the ER he was noted to be febrile. White count was not elevated, but he did have a left shift. He was initially placed on vancomycin and cefazolin. Since admission, white count has persisted, as have fevers and Infectious Diseases is asked to
comment upon further antimicrobial therapy.
Past History
Additional Past Medical History:
A-fib (on Pradaxa)
MEHDI
GERD
NIDDM
Hx RCC
Additional Past Surgical History:
Partial left nephrectomy
Cardiac ablation
Allergy History:
Penicillins Allergy (Verified 07/16/24 13:55)
THROAT SWELLING, HIVES
sulfamethoxazole [From Bactrim] Allergy (Verified 07/16/24 13:55)
THROAT SWELLING, HIVES
Medications Reviewed: Yes
Current Antibiotics:
Cefazolin 2 g IV every 8 hours (day #3)
Vancomycin (dosed per pharmacy) (day #3)
Social History
Tobacco: Non-Smoker
Alcohol: None
Drug: None
Personal:
Living: With Family
Employment: Employed
Family History
Family History: Not Pertinent
Review of Systems
Vital Signs
Temp Pulse Resp BP Pulse Ox
98.8 F 127 24 115/85 96
07/18/24 07:37 07/18/24 07:52 07/18/24 07:37 07/18/24 07:52 07/18/24 03:40
Physical Exam
Physical Exam
Constitutional: No Acute Distress, Well Developed, Comfortable, Non-toxic and Obese
Head: Normocephalic
Eyes: Pupils Equal, Pupils Round, No Conjunctival Hemorrhage and Sclera Anicteric
Oral: No Thrush and No Ulcers
Cardiovascular: Regular Rate and S1/S2; Negative S3/S4
Pulmonary: Clear; Negative Wheezes, Rales or Rhonchi
Gastrointestinal: Soft, Non Tender, Non Distended, Normal Bowel Sounds, No Rebound and No Guarding
Genito-Urinary: Negative Cao
Extremities: Edema (RLE), Erythema (RLE; patchy and dark) and Calf Swelling; Negative Cyanosis
Skin: Warm and Dry; Negative Jaundice
Neurological: Awake and Alert
Psychological: Calm
Lab / Diagnostic Study Results
07/18/24 07:57
07/18/24 07:57
Abs Immat Gran (auto) 0.1 10^3/uL (0-0.05) H 07/17/24 05:38
Absolute Neuts (auto) 7.9 10^3/uL (1.4-6.5) H 07/17/24 05:38
Absolute Lymphs (auto) 1.4 10^3/uL (1.2-3.4) 07/17/24 05:38
Absolute Monos (auto) 1.6 10^3/uL (0.1-0.6) H 07/17/24 05:38
Absolute Basos (auto) 0.1 10^3/uL (0-0.2) 07/17/24 05:38
Immature Gran % 0.6 % (0-0.5) H 07/17/24 05:38
Neutrophils % 71.5 % (42.2-75.2) 07/17/24 05:38
Lymphocytes % 12.6 % (20.5-51.1) L 07/17/24 05:38
Monocytes % 14.1 % (1.7-9.3) H 07/17/24 05:38
Eosinophils % 0.6 % (0-6) 07/17/24 05:38
Basophils % 0.6 % (0-2) 07/17/24 05:38
Lactic Acid 1.5 mmol/L (0.7-2.0) 07/16/24 18:12
Lactic Acid Cancelled 07/16/24 18:12
Microbiology Results
Micro:
07/18/24 07:57 Blood Culture - Pending
Blood/Venous
07/16/24 18:12 Blood Culture - Preliminary
Blood/Venous No Growth in 24 hours- Final report to follow
07/16/24 18:12 Blood Culture - Preliminary
Blood/Venous No Growth in 24 hours- Final report to follow
07/16/24 14:03 Influenza Types A & B (GERMAINE) - Final
Nasal Swab Negative for Influenza A & B, NAAT
Negative results must be combined with clinical observations
and patient history.
Nucleic Acid Amplification test (NAAT)performed on the
[employer] NOW platform.
Imaging:
07/16/2024 Duplex ultrasound right lower extremity: Real-time grayscale and duplex ultrasound of the deep venous system of the right lower extremity demonstrates no evidence of deep venous thrombosis. Normal flow is demonstrated in the posterior
tibial, popliteal, superficial femoral and common femoral veins. These vessels are normally compressible and demonstrate normal flow augmentation with compression. Normal blood flow is seen in the left common femoral vein.
Assessment / Plan
Low-grade fevers
Suspected right lower extremity cellulitis
Low-grade white count
A-fib (on Pradaxa)
MEHDI
GERD
NIDDM
Hx RCC
Recommendations:
Continue with vancomycin for the present. Discontinue further cefazolin for now.
Overall appearance of the leg not entirely consistent with cellulitis, although atypical presentation may be caused by combination of tissue damage and Pradaxa
Lower extremity elevation above the level of the heart for 2 hours out of every 6.
Elbert wrap to the right lower extremity.
Follow for clinical improvement.
Care Review
Plan reviewed with: Physician (Hospitalist)
[2024-07-18] MEDS: TOPROL XL 25 MG PO (12:21)
[2024-07-18] MEDS: FLUSH (NSS) 2 FLUSH IV (12:30)
--- NOTE | 2024-07-18 12:35 | PTCARENOTE ---
Pt c/o of itching throughout RLE, leg appears dry. made aware, new order provided, see MAR.
--- NOTE | 2024-07-18 13:31 | CON.CAR ---
Consultation
Consultation Request
Date/Time Consultation Requested: July 18, 2024
Date/Time Consultation Performed: July 18, 2024
Requesting Provider: Hospitalist
Performing Provider: Aimee
Reason for Consultation: A-fib
Medical History
-
Chief Complaint: A-fib
History of Present Illness:
63-year-old male with history of prior multiple cardiac ablations maintained on sotalol and metoprolol by Dr. Tyrone Zarate at [facility]. He is in with fever, cellulitis, requiring IV antibiotics and rates are modestly elevated in
the 110 to 120 bpm range and he is interestingly asymptomatic. He is due for a cardiac ultrasound as an outpatient. He has not missed any doses of oral anticoagulation per patient.
Past Medical History
Past Medical History: Arrhythmias
Past Surgical History: Urological
Social History
Tobacco: Former Smoker
Alcohol: None
Drug: None
Personal:
Living: With Family
Employment: Employed
Family History
Family History: Reviewed & Not Pertinent
Allergies / Home Medications
Allergy/AdvReac Type Severity Reaction Status Date / Time
Penicillins Allergy THROAT Verified 07/16/24 13:55
SWELLING,
HIVES
sulfamethoxazole Allergy THROAT Verified 07/16/24 13:55
[From Bactrim] SWELLING,
HIVES
trimethoprim [From Bactrim] Allergy THROAT Verified 07/16/24 13:55
SWELLING,
HIVES
�Medication �Instructions �Recorded �Confirmed �Type
cholecalciferol (vitamin D3) 25 25 mcg PO QPM Supplement 11/27/22 07/16/24 History
mcg (1,000 unit) tablet (Vitamin
D3)
dabigatran etexilate 150 mg 150 mg PO BID Blood Clot 11/27/22 07/16/24 History
capsule (Pradaxa) Prevention/Tx
losartan 50 mg tablet 50 mg PO DAILY Blood Pressure 11/27/22 07/16/24 History
metformin 500 mg tablet,extended 500 mg PO BID Diabetes 11/27/22 07/16/24 History
release 24hr (osmotic)
metoprolol succinate 25 mg 25 mg PO DAILY Arrhythmia 11/27/22 07/16/24 History
tablet,extended release 24 hr
sotalol 120 mg tablet 120 mg PO BID Arrhythmia 11/27/22 07/16/24 History
albuterol sulfate 90 mcg/actuation 2 puff inhalation R Q6HPRN PRN sob 07/16/24 07/16/24 History
aerosol inhaler
empagliflozin 10 mg tablet 10 mg PO DAILY Diabetes 07/16/24 07/16/24 History
(Jardiance)
pantoprazole 40 mg tablet,delayed 40 mg PO DAILYPRN PRN heartburn 07/16/24 07/16/24 History
release
potassium chloride 10 mEq 10 meq PO DAILY Supplement 07/16/24 07/16/24 History
tablet,extended release
semaglutide 1 mg/dose (4 mg/3 mL) 1 mg SC MO Diabetes 07/16/24 07/16/24 History
subcutaneous pen injector (Ozempic)
therapeutic multivitamin 1 tab PO DAILY Supplement 07/16/24 07/16/24 History
torsemide 10 mg tablet 10 mg PO DAILY Fluid 07/16/24 07/16/24 History
Retention/Swelling
Review of Systems
-
All other systems: Negative unless noted
Cardiac: No Symptoms, Chest Pain and Palpitations
Abdomen/GI: No Symptoms
: No Symptoms
Musculoskeletal: No Symptoms
Skin: No Symptoms
Neurological: No Symptoms
Physical Exam
Vital Signs
Temp Pulse Resp BP Pulse Ox
98.3 F 121 18 133/76 97
07/18/24 11:45 07/18/24 12:21 07/18/24 11:45 07/18/24 12:21 07/18/24 11:45
Lab Results
07/18/24 07:57
07/18/24 07:57
Physical Exam
General: Well Developed and Well Nourished
HEENT: Normocephalic and Anicteric
Respiratory: Clear
Cardiac: S1/S2 and Irregular Rhythm
Breast: Deferred by me
GI: Soft, Non Tender and Non Distended
Rectal: Deferred by Provider
Genito-urinary: Other
Musculoskeletal: No Clubbing and No Cyanosis
Skin: Warm, Dry and Rash
Neuro: Awake, Alert and Oriented
Hematologic/Lymphatic: No Lymphadenopathy
Psych: Calm
Impression / Plan
-
Impression:
Fever
Cellulitis�admission for acute refractory cellulitis
History of prior multiple cardiac ablations for A-fib most recent 3 years ago
Antiarrhythmic drug therapy monitoring
Hypertension
Sleep apnea
BMI 39
Recent introduction of Mounjaro
Hyponatremia
GERD
History of partial nephrectomy
Recommendations:
Check echocardiogram on Friday
With regards to paroxysmal atrial fibrillation s/p cardiac ablation x 3
-Continue sotalol
-Continue metoprolol
-Continue Pradaxa
-Reasonable to follow EKG every 2 to 3 days
-Maintain telemetry
-Please request old records on Friday as he is a complex prior cardiac and A-fib history
-Appears euvolemic
Data Reviewed
-
EKG: Tracing Personally Visualized and interpreted
Radiology: Report Reviewed by me
MRI: Image Personally Visualized and interpreted
Medical Tests (Nuc Med, Echo etc): Image Personally Visualized and interpreted
Labs: Labs Reviewed by me
Old Records: Requested
[2024-07-18] MEDS: HYDROPHOR 1 APPLIC TOPICAL (13:34)
[2024-07-18 15:30] VITALS: BP 118/78
[2024-07-18 17:59] LABS: Glucose - Point of Care 133 mg/dl (70-99)
[2024-07-18] MEDS: VITAMIN D3 (cholecalciferol) 25 MCG PO (18:02)
[2024-07-18 19:30] VITALS: BP 111/62
[2024-07-18 21:29] LABS: Glucose - Point of Care 125 mg/dl (70-99)
[2024-07-18 23:35] VITALS: BP 146/90
[2024-07-19 03:55] VITALS: BP 110/72
[2024-07-19] MEDS: VANCOCIN 540 MG IV (05:59)
[2024-07-19 06:00] VITALS: BMI 39.4
[2024-07-19 07:21] VITALS: BP 142/82
[2024-07-19 08:03] LABS: Glucose - Point of Care 110 mg/dl (70-99)
[2024-07-19] MEDS: GLUCOPHAGE XR EXTENDED RELEASE 500 MG PO ×2 (08:07→16:26)
[2024-07-19] MEDS: BETAPACE 120 MG PO (08:07)
[2024-07-19] MEDS: PRADAXA 150 MG PO (08:08)
[2024-07-19] MEDS: THERAGRAN 1 TABLET PO (08:08)
[2024-07-19] MEDS: COZAAR 50 MG PO (08:08)
[2024-07-19] MEDS: TOPROL XL 50 MG PO ×2 (08:09→14:02)
--- NOTE | 2024-07-19 08:36 | PHA.VAN.FU ---
Vancomycin Assessment / Plan
- Assessment
Renal Function: SCR Decreasing
WBC's are: Stable
In the past 24 hrs, patient has been: Afebrile
- Dosing Plan
Continue: Vanc 2000mg Q12H through levels tonight
Patient may not fully be at steady state given weight > 100kg and likely does not follow population PK
However, will obtain levels now given high dosing
- Monitoring Plan
Peak Level: 07/19 22:00
Trough Level: 07/20 05:30
Monitoring Comments: levels to be drawn after 4th consistent total dose of 2g
- Follow Up
Pharmacy will continue to follow.
Vancomycin Follow UP
- -
Patient Age: 63
Patient Sex: Male
Vancomycin Day #: 2
Indication: Bacteremia
Requesting Provider: Dr. Razo / Eric
Pertinent Antimicrobial Allergies:
penicillins =throat swelling
SMX/TMP = swelling
Height / Weight:
Height 6 ft 4 in
Actual Weight 146.782 kg
IBW in k.8
Pertinent Past Medical History: BMI ~39
- Vital Signs / Lab Results
Temp Pulse Resp BP Pulse Ox
98.1 F 94 17 142/82 97
07/19/24 07:21 07/19/24 08:07 07/19/24 07:21 07/19/24 08:07 07/19/24 07:21
Lab Results - Hematology
07/16/24 07/17/24 07/18/24
14:03 05:38 07:57
WBC 10.8 11.0 H 11.1 H
Lab Results - Chemistry
07/16/24 07/17/24 07/18/24
14:03 05:38 07:57
BUN 14 18 19
Creatinine 0.9 1.0 0.9
Estimated Creat Clear 119 > 125
Albumin 3.9 3.7
07/16/24 07/16/24
18:12 18:12
Lactic Acid 1.5 Cancelled
Microbiology Results
07/18/24 07:57 Blood Culture - Preliminary
Blood/Venous No Growth in 24 hours- Final report to follow
07/16/24 18:12 Blood Culture - Preliminary
Blood/Venous No Growth in 48 hours- Final report to follow
07/16/24 18:12 Blood Culture - Preliminary
Blood/Venous No Growth in 48 hours- Final report to follow
[2024-07-19 09:12] LABS: Hematocrit 40.1 % (39.0-52.0); Hemoglobin 13.2 g/dL (13.0-18.0); Mean Corp Hgb Conc. 32.9 g/dL (33.0-37.0); Mean Corpuscular Hgb 30.7 pg (27.0-31.0); Mean Corpuscular Volume 93.3 fL (80.0-94.0); Mean Platelet Volume 9.7 fL (7.4-10.4); Platelet Count 315 10^3/uL (130-400); Red Cell Dist. Width 14.3 % (11.5-14.5); White Blood Cell Count 11.8 10^3/uL (4.8-10.8)
[2024-07-19 09:15] LABS: Blood Urea Nitrogen 16 mg/dl (9-20); Calcium 8.4 mg/dl (8.4-10.2); Carbon Dioxide 28 mmol/L (22-30); Chloride 99 mmol/L (98-107); Estimated Creatinine Clearance > 125 ml/min; Glucose 115 mg/dl (70-99); Potassium 4.3 mmol/L (3.5-5.1); Sodium 136 mmol/L (135-145); eGFR > 60.00
--- NOTE | 2024-07-19 10:00 | PTCARENOTE ---
Pt tachycardic, HR 100's-120's. Asymptomatic. made aware. No new orders provided.
--- NOTE | 2024-07-19 10:55 | W.PN.CARDCBS ---
Today's Communication / Plan
-
Sign off
Impression / Plan
-
Impression:
Fever
Cellulitis�admission for acute refractory cellulitis
History of prior multiple cardiac ablations for A-fib most recent 3 years ago
Antiarrhythmic drug therapy monitoring
Hypertension
Sleep apnea
BMI 39
Recent introduction of Mounjaro
Hyponatremia
GERD
History of partial nephrectomy
Recommendations:
Remains in rate controlled A-fib
He has had paroxysmal A-fib in the past and is followed closely by EP elsewhere
He remains stable for discharge from a cardiology viewpoint
Will try to obtain records for future admissions here
Will sign off, call with questions
Discussed with patient and in detail
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
Subjective
Date of Service: July 19, 2024
No complaints
Objective
Labs:
07/19/24 07:56
07/19/24 07:56
Labs
Hgb 13.2 g/dL (13.0-18.0) 07/19/24 07:56
Hct 40.1 % (39.0-52.0) 07/19/24 07:56
Plt Count 315 10^3/uL (130-400) D 07/19/24 07:56
Sodium 136 mmol/L (135-145) 07/19/24 07:56
Potassium 4.3 mmol/L (3.5-5.1) 07/19/24 07:56
BUN 16 mg/dl (9-20) 07/19/24 07:56
Creatinine 0.7 mg/dL (0.7-1.3) 07/19/24 07:56
Glucose 115 mg/dl (70-99) H 07/19/24 07:56
Vital Signs and I&O:
Vital Signs
Temp Pulse Resp BP Pulse Ox
98.1 F 94 17 142/82 97
07/19/24 07:21 07/19/24 08:07 07/19/24 07:21 07/19/24 08:07 07/19/24 07:21
Vital Signs
Temp Pulse Resp BP Pulse Ox
98.1 F 94 17 142/82 97
07/19/24 07:21 07/19/24 08:07 07/19/24 07:21 07/19/24 08:07 07/19/24 07:21
Intake & Output
07/17/24 07/18/24 07/19/24 07/20/24
06:59 06:59 06:59 06:59
Intake Total 1500 / 1500 3440 / 3440
Balance 1500 / 1500 3440 / 3440
Physical Exam
Physical Exam
General: Well developed, well nourished in NAD.
Neck: Supple, no JVD, HJR, carotids +2 B/L, no bruits bilaterally.
Heart: Non displaced PMI, irregular, no murmurs, No S3, S4, no rubs.
Lungs: Clear to auscultation bilaterally, no wheeze, rhonchi, rubs bilaterally,
normal expiratory phase.
Extremities: No clubbing, cyanosis or edema bilaterally.
Neuro: Grossly nonfocal, awake, alert and oriented x3.
[2024-07-19 11:10] VITALS: BP 132/85
[2024-07-19 11:50] LABS: Glucose - Point of Care 116 mg/dl (70-99)
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
[2024-07-19] MEDS: DEMADEX 10 MG PO (12:41)
--- NOTE | 2024-07-19 13:03 | W.PN.ID1 ---
Date of Service
Date of Service: July 19, 2024
Today's Communication
Continue antibiotics. See below�
Assessment / Plan
Low-grade fevers
Suspected right lower extremity cellulitis
Low-grade white count
A-fib (on Pradaxa)
MEHDI
GERD
NIDDM
Hx RCC
Recommendations:
Continue with vancomycin for now.
I have reached out to Case Management regarding infusion benefits.
Ideally, would give a dose of daptomycin today to bridge until tomorrow, when he could receive a dose of dalbavancin in the Outpatient Infusion Department.
Will await to hear from CM.
Continue wilfredo wrap to the right lower extremity.
����������������������������������������������������������
Chief Complaint
-: Cellulitis
Subjective / Review of Systems
Patient seen and examined. Reports right leg is feeling improved. Still with same amount of discoloration/erythema, but no worsening, and prior discomfort has improved.
Vital Signs / Physical Exam
Vital Signs
Vital Signs
Temp Pulse Resp BP Pulse Ox
98.8 F 117 18 132/85 98
07/19/24 11:10 07/19/24 12:41 07/19/24 11:10 07/19/24 12:41 07/19/24 11:10
Physical Exam
Constitutional: No Acute Distress, Comfortable and Non-toxic
Eyes: Sclera Anicteric
Pulmonary: Non Labored
Gastrointestinal: Non Distended
Extremities: Other (Right leg with ongoing edema. Discolored areas over the leg appears stable, and have not significantly changed or gotten worse. Prior tenderness is diminished.)
Neurological: Awake and Alert
Psychological: Calm
Objective Data
Lab Data
Lab Results
07/19/24 07:56
07/19/24 07:56
Estimated Creat Clear > 125 ml/min 07/19/24 07:56
Lactic Acid 1.5 mmol/L (0.7-2.0) 07/16/24 18:12
Lactic Acid Cancelled 07/16/24 18:12
Total Bilirubin 0.7 mg/dl (0.2-1.3) 07/17/24 05:38
AST 32 U/L (17-59) 07/17/24 05:38
ALT 23 U/L (0-50) 07/17/24 05:38
Alkaline Phosphatase 66 U/L (38-126) 07/17/24 05:38
Most recent labs reviewed.
Micro Results:
07/18/24 07:57 Blood Culture - Preliminary
Blood/Venous No Growth in 24 hours- Final report to follow
07/16/24 18:12 Blood Culture - Preliminary
Blood/Venous No Growth in 48 hours- Final report to follow
07/16/24 18:12 Blood Culture - Preliminary
Blood/Venous No Growth in 48 hours- Final report to follow
07/16/24 14:03 Influenza Types A & B (GERMAINE) - Final
Nasal Swab Negative for Influenza A & B, NAAT
Negative results must be combined with clinical observations
and patient history.
Nucleic Acid Amplification test (NAAT)performed on the
[employer] platform.
Imaging:
07/16/2024 Duplex ultrasound right lower extremity: Real-time grayscale and duplex ultrasound of the deep venous system of the right lower extremity demonstrates no evidence of deep venous thrombosis. Normal flow is demonstrated in the posterior
tibial, popliteal, superficial femoral and common femoral veins. These vessels are normally compressible and demonstrate normal flow augmentation with compression. Normal blood flow is seen in the left common femoral vein.
Care Review
Plan reviewed with: Physician (Hospitalist) and Other (Case management)
[2024-07-19 13:40] VITALS: BP 144/77
--- NOTE | 2024-07-19 13:56 | PTCARENOTE ---
HR 150's-160's. Pt OOB. Asymptomatic. Vital signs obtained. MD and grey goods tester made aware. New order provided, see MAR.
[2024-07-19 15:18] VITALS: BP 138/86
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
[2024-07-19] MEDS: CUBICIN 20 MG IV (15:24)
--- NOTE | 2024-07-19 15:24 | CM ---
Patient seen today with .
CM spoke with Dr. Reyes
Patient set up for outpatient infusion tomorrow.
States he already received a call from Shelley at Outpatient Infusion.
Patient states will be discharged today.
IMM explained & signed. Received tt from patient LOC to inpatient
PLAN: Home, outpatient infusion tomorrow set
to transport
--- NOTE | 2024-07-19 15:35 | PTCARENOTE ---
Resting HR 110's-120's. 140's-150's on ambulation. Asymptomatic. MD made aware. on unit, observed library monitor at nurses station.
[2024-07-19] MEDS: LOPRESSOR 5 MG IV (16:26)
[2024-07-19 16:47] LABS: Glucose - Point of Care 104 mg/dl (70-99)
--- NOTE | 2024-07-19 17:00 | PTCARENOTE ---
HR continues to be elevated, 110's-130's. Pt asymptomatic. made aware.
== END 2024-07-19 17:28 | disposition home or self-care (01) | DRG 603 ==
LOC: 3 WEST ACU 14:35
PROVIDERS: Emergency Medicine; Internal Medicine; Registered Nurse; ADMITTING PHYSICIAN Hospitalist; ATTENDING PHYSICIAN Hospitalist; CONSULT PHYSICIAN Internal Medicine Cardiovascular Disease; CONSULT PHYSICIAN Internal Medicine Infectious Disease; EMERGENCY PHYSICIAN Emergency Medicine
DX: L03.115 Cellulitis of right lower limb (principal); E87.1 Hypo-osmolality and hyponatremia; R50.9 Fever, unspecified; I48.0 Paroxysmal atrial fibrillation; E11.40 Type 2 diabetes mellitus with diabetic neuropathy, unspecified; Z79.84 Long term (current) use of oral hypoglycemic drugs; Z87.891 Personal history of nicotine dependence; Z85.528 Personal history of other malignant neoplasm of kidney; K21.9 Gastro-esophageal reflux disease without esophagitis; G47.33 Obstructive sleep apnea (adult) (pediatric); Z88.0 Allergy status to penicillin; Z88.2 Allergy status to sulfonamides; Z79.02 Long term (current) use of antithrombotics/antiplatelets; I10 Essential (primary) hypertension; E66.01 Morbid (severe) obesity due to excess calories; Z68.39 Body mass index [BMI] 39.0-39.9, adult; Z79.899 Other long term (current) drug therapy; Z88.1 Allergy status to other antibiotic agents
CPT/HCPCS: 80048; 80053; 82962; 83036; 83605; 85025; 85027; 87040; 87502; 87811; 93005; 93971; 96374; 96375; 99284; J0878

== ENCOUNTER 2024-07-20 11:23 | Outpatient (RCR) | payer MEDICARE, SELFPAY ==
[2024-07-20 12:10] VITALS: BP 144/93
[2024-07-20] MEDS: DALVANCE 575 MG IV (12:33)
[2024-07-20 13:23] VITALS: BP 135/73
== END 2024-07-20 23:59 | disposition home or self-care (01) ==
LOC: OID 11:23
PROVIDERS: ATTENDING PHYSICIAN Internal Medicine Infectious Disease
DX: L03.115 Cellulitis of right lower limb (principal)
CPT/HCPCS: 96365; J0875

== ENCOUNTER → 2024-11-11 07:47 | Outpatient (REF) | payer MEDICARE, SELFPAY | LOC: WOUND 07:47 | PROVIDERS: ATTENDING PHYSICIAN Surgery | DX: L97.212 Non-pressure chronic ulcer of right calf with fat layer exposed (principal); L97.529 Non-pressure chronic ulcer of other part of left foot with unspecified severity; E11.9 Type 2 diabetes mellitus without complications; I48.91 Unspecified atrial fibrillation; Z89.421 Acquired absence of other right toe(s) | CPT/HCPCS: 97597; 99213 ==

== ENCOUNTER 2024-11-11 08:45 | Emergency (ER) | payer MEDICARE, SELFPAY ==
[2024-11-11 08:49] VITALS: BP 144/86
[2024-11-11 10:19] LABS: Urine Albumin 2+ (Neg - Trace); Urine Bilirubin Negative (Negative); Urine Character Clear (Clear); Urine Color Yellow; Urine Glucose 4+ (Negative); Urine Ketone Negative (Negative); Urine Leukocyte Negative (Negative); Urine Nitrite Negative (Negative); Urine Occult Blood 4+ (Negative); Urine Specific Gravity 1.015 (<1.030); Urine Urobilinogen Negative (Neg - 1+)
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
[2024-11-11 11:17] LABS: Urine Amorphous Seen; Urine Urothelial Cell 0-2 /LPF (FEW)
[2024-11-11 11:20] LABS: Urine Red Blood Cell 30-40 /HPF (0-2)
[2024-11-11 11:41] VITALS: BP 131/82
== END 2024-11-11 11:47 | disposition home or self-care (01) ==
LOC: EMR 08:45
PROVIDERS: Emergency Medicine; EMERGENCY PHYSICIAN Emergency Medicine
DX: R31.9 Hematuria, unspecified (principal); R35.0 Frequency of micturition; I48.91 Unspecified atrial fibrillation; K21.9 Gastro-esophageal reflux disease without esophagitis; E11.9 Type 2 diabetes mellitus without complications; G47.33 Obstructive sleep apnea (adult) (pediatric); Z85.528 Personal history of other malignant neoplasm of kidney; Z90.5 Acquired absence of kidney
CPT/HCPCS: 99282; 81003; 81015

== ENCOUNTER 2025-07-07 07:57 | Outpatient (REF) | payer MEDICARE, SELFPAY | END 2025-07-07 23:59 | disposition home or self-care (01) | LOC: WOUND 07:57 | PROVIDERS: ATTENDING PHYSICIAN Registered Nurse | DX: L97.211 Non-pressure chronic ulcer of right calf limited to breakdown of skin (principal); L03.115 Cellulitis of right lower limb; E11.40 Type 2 diabetes mellitus with diabetic neuropathy, unspecified | CPT/HCPCS: 97597; 99204 ==

== ENCOUNTER 2025-07-13 07:53 | Outpatient (REF) | payer MEDICARE, SELFPAY | END 2025-07-13 23:59 | disposition home or self-care (01) | LOC: WOUND 07:53 | PROVIDERS: ATTENDING PHYSICIAN Registered Nurse | DX: L97.211 Non-pressure chronic ulcer of right calf limited to breakdown of skin (principal); E11.9 Type 2 diabetes mellitus without complications; L03.115 Cellulitis of right lower limb; E11.40 Type 2 diabetes mellitus with diabetic neuropathy, unspecified | CPT/HCPCS: 97597 ==

== ENCOUNTER 2025-07-19 07:54 | Outpatient (REF) | payer MEDICARE, SELFPAY | END 2025-07-19 23:59 | disposition home or self-care (01) | LOC: WOUND 07:54 | PROVIDERS: ATTENDING PHYSICIAN Registered Nurse | DX: L97.211 Non-pressure chronic ulcer of right calf limited to breakdown of skin (principal); L03.115 Cellulitis of right lower limb; E11.40 Type 2 diabetes mellitus with diabetic neuropathy, unspecified | CPT/HCPCS: 99213 ==